=== PATIENT | male | born 1995 | race Hispanic/Latino ===

== ENCOUNTER 2023-01-17 20:20 | Inpatient (IN) | payer OTHER ==
[2023-01-17 20:51] VITALS: BMI 33.3
[2023-01-17] MEDS ORDERED: Communication Order-Pharmacy FS PRN (21:42)
[2023-01-17] MEDS ORDERED: Acetaminophen 325 MG TAB PO PRN (21:46)
[2023-01-17] MEDS ORDERED: Cefepime 2 GM in Sodium Chloride 0.9% 100 ML IVPB SCH ×2 (22:00→22:30)
[2023-01-17] MEDS ORDERED: Azithromycin 500 MG in Sodium Chloride 0.9% 250 ML 250 ML IVPB SCH (22:00)
[2023-01-17] MEDS: Lactated Ringer's 1,000 ML IV SCH (22:23)
[2023-01-17] MEDS: Ketorolac Tromethamine 30 MG/ML VIAL IVP PRN (22:26)
[2023-01-17 22:36] LABS: Troponin I 0.022 ng/mL (< 0.028)
[2023-01-17] MEDS ORDERED: VANCOMYCIN 2 GRAM/400 ML BAG 2 GM in Premix Bag 1 BAG IVPB SCH (23:59)
[2023-01-18 03:51] LABS: SARS-CoV-2 NAA Rapid Test Not Detected (NotDetected)
[2023-01-18] MEDS ORDERED: diphenhydrAMINE 50 MG/ML VIAL IVP SCH ×2 (04:15→15:00)
[2023-01-18 05:30] LABS: #Eosinphils 0.1 10x3/uL (0.0-0.5); %Basophils 0.3 % (0.0-2.0); %Eosinophils 0.7 % (0.0-6.0); %Lymphocytes 12.4 % (18.0-47.0); %Monocytes 9.1 % (0.0-10.0); %Neutrophils 77.1 % (40.0-75.0); Hemoglobin 13.8 g/dL (13.5-17.5); Mean Corpuscular Hemoglobin 29.2 pg (27.0-33.0); Mean Corpuscular Volume 88.6 fl (81.2-95.1); Mean Platelet Volume 10.1 fl (7.4-10.4); Platelet Count 214 10x3/uL (150-450); RBC Distribution Width 13.8 % (11.5-14.5); Red Blood Cell (RBC) Count 4.72 10x6/uL (4.32-5.72); White Blood Cell (WBC) Count 10.4 10x3/uL (3.5-10.5)
[2023-01-18 05:45] LABS: Anion Gap 14 mmol/L (10-20); BUN (Urea Nitrogen) 10 mg/dL (8.9-20.6); Calc. Creatinine Clearance 230 mL/min (70-130); Calcium 8.3 mg/dL (7.8-10.44); Carbon Dioxide 21 mmol/L (22-29); Chloride 108 mmol/L (98-107); Estimated GFR 123; Glucose 113 mg/dL (70-105); Sodium 139 mmol/L (136-145)
[2023-01-18] MEDS: Lactated Ringer's 1,000 ML IV SCH ×2 (06:42→22:57)
[2023-01-18] MEDS ORDERED: Cefepime 2 GM in Sodium Chloride 0.9% 100 ML IVPB SCH (08:00)
[2023-01-18 08:46] LABS: ALT (SGPT) 30 U/L (8-55); AST (SGOT) 23 U/L (5-34); Albumin 3.8 g/dL (3.5-5.0); Alkaline Phosphatase 60 U/L (40-110); Bilirubin, Direct 0.2 mg/dL (0.1-0.3); Bilirubin, Total 0.5 mg/dL (0.2-1.2); Protein, Total 6.7 g/dL (6.0-8.3)
[2023-01-18] MEDS: Ketorolac Tromethamine 30 MG/ML VIAL IVP PRN (09:50)
[2023-01-18] MEDS ORDERED: VANCOMYCIN 2 GRAM/400 ML BAG 2 GM in Premix Bag 1 BAG IVPB SCH ×2 (12:00→17:00)
[2023-01-18 14:09] LABS: Bilirubin Neg (Negative); Blood, Urine Negative (Negative); Clarity Clear (Clear); Glucose, Urine (Dipstick) Normal (Negative); Ketone, Urine Negative (Negative); Leukocyte Negative (Negative); Nitrite Negative (Negative); Protein, Urine (Dipstick) Negative (Neg-Trace); Urobilinogen Normal mg/dL (Less than 2)
[2023-01-18 14:39] LABS: CAUTI Indications for Culture Fever or rigors; RBC/HPF 0-3 HPF (0-3); Squamous Epithelial 0-3 HPF (0-3); WBC/HPF 0-3 HPF (0-3)
[2023-01-18 14:40] LABS: Bacteria/HPF None Seen HPF (None Seen); Urine Culture Reflex No No
[2023-01-18] MEDS: Sucralfate 1 GM TAB PO SCH ×3 (14:55→22:57)
[2023-01-18 15:36] LABS: Troponin I 2.777 ng/mL (< 0.028)
[2023-01-18] MEDS ORDERED: Aspirin 325 MG TAB PO SCH (17:00)
[2023-01-18] MEDS ORDERED: Ipratropium/Albuterol 3 ML NEB NEB PRN (17:02)
[2023-01-18 19:50] LABS: Troponin I 1.306 ng/mL (< 0.028)
[2023-01-18] MEDS: Enoxaparin 120 MG/0.8 ML SYRINGE SC SCH (22:57)
[2023-01-19 00:35] LABS: #Eosinphils 0.2 10x3/uL (0.0-0.5); #Monocytes 0.8 10x3/uL (0.0-1.1); #Neutrophils 3.6 10x3/uL (1.5-8.4); %Basophils 0.5 % (0.0-2.0); %Eosinophils 3.1 % (0.0-6.0); %Lymphocytes 27.2 % (18.0-47.0); %Monocytes 12.3 % (0.0-10.0); %Neutrophils 56.3 % (40.0-75.0); Hemoglobin 13.6 g/dL (13.5-17.5); Mean Corpuscular HGB CONC 33.4 g/dL (32.0-36.0); Mean Corpuscular Hemoglobin 29.2 pg (27.0-33.0); Mean Corpuscular Volume 87.5 fl (81.2-95.1); Mean Platelet Volume 10.4 fl (7.4-10.4); Platelet Count 213 10x3/uL (150-450); RBC Distribution Width 13.7 % (11.5-14.5); Red Blood Cell (RBC) Count 4.65 10x6/uL (4.32-5.72); White Blood Cell (WBC) Count 6.4 10x3/uL (3.5-10.5)
[2023-01-19 00:49] LABS: ALT (SGPT) 26 U/L (8-55); AST (SGOT) 23 U/L (5-34); Albumin 3.9 g/dL (3.5-5.0); Alkaline Phosphatase 68 U/L (40-110); Anion Gap 15 mmol/L (10-20); BUN (Urea Nitrogen) 11 mg/dL (8.9-20.6); Bilirubin, Total 0.2 mg/dL (0.2-1.2); Calc. Creatinine Clearance 242 mL/min (70-130); Calcium 8.5 mg/dL (7.8-10.44); Carbon Dioxide 20 mmol/L (22-29); Chloride 110 mmol/L (98-107); Estimated GFR 125; Globulin 2.9 g/dL (2.4-3.5); Glucose 148 mg/dL (70-105); Potassium 3.7 mmol/L (3.5-5.1); Protein, Total 6.8 g/dL (6.0-8.3); Sodium 141 mmol/L (136-145)
[2023-01-19 00:53] LABS: Troponin I 0.678 ng/mL (< 0.028)
[2023-01-19] MEDS: Lactated Ringer's 1,000 ML IV SCH (04:01)
[2023-01-19] MEDS ORDERED: VANCOMYCIN 2 GRAM/400 ML BAG 2 GM in Premix Bag 1 BAG IVPB SCH (05:00)
[2023-01-19 06:36] LABS: Troponin I 0.375 ng/mL (< 0.028)
[2023-01-19] MEDS: Sucralfate 1 GM TAB PO SCH ×2 (08:34→12:33)
[2023-01-19] MEDS: Enoxaparin 120 MG/0.8 ML SYRINGE SC SCH (08:35)
[2023-01-19] MEDS ORDERED: Pantoprazole 40 MG VIAL IVP SCH (09:00)
[2023-01-19 13:52] VITALS: BP 132/72; TEMP 98
== END 2023-01-19 14:30 | disposition home or self-care (01) | DRG 871 ==
LOC: INTOOBSV 20:20 → CSHTELE 20:20 → OBSVTOIN 01-18 17:00
PROVIDERS: ADMIT Emergency Medicine; ATTEND Physician Assistant Medical
DX: A41.9 Sepsis, unspecified organism (principal); I21.4 Non-ST elevation (NSTEMI) myocardial infarction; A08.4 Viral intestinal infection, unspecified; Z79.899 Other long term (current) drug therapy; Z86.16 Personal history of COVID-19; Z90.49 Acquired absence of other specified parts of digestive tract; F17.210 Nicotine dependence, cigarettes, uncomplicated
CPT/HCPCS: 36415; 71250; 80048; 80053; 80076; 81001; 83605; 83735; 84145; 84484; 85025; 85652; 87040; 87324; 87449; 87507; 87633; 87798; 87807; 93005; 93010; 93306; 96372; 96374; 96375; 96376; C9113; G0378; J0456; J0692; J1200; J1650; J1885; J1956; J3370; J3490; J7050; J7120; U0002

== ENCOUNTER 2024-09-02 14:24 | Outpatient (CLI) | payer OTHER | END 2024-09-02 14:25 | disposition home or self-care (01) | LOC: CSHMRI 14:24 | PROVIDERS: ATTEND Orthopaedic Surgery | DX: M51.17 Intervertebral disc disorders with radiculopathy, lumbosacral region (principal) | CPT/HCPCS: 72148 ==